=== PATIENT | male | born 1945 | race Caucasian/White ===

== ENCOUNTER 2023-11-11 16:36 | Inpatient (IN) | payer OTHER ==
[2023-11-11 16:59] VITALS: BMI 28.7
[2023-11-11 17:44] LABS: VENOUS O2 SATURATION 90.6 % (70-80); VENOUS PCO2 34.2 mmHg (38-52); VENOUS PH 7.454 (7.310-7.410)
[2023-11-11 17:53] LABS: BASO % 0.4 % (0-2.0); HEMATOCRIT 35.7 % (35.4-49); HEMOGLOBIN 11.9 GM/dL (11.7-16.9); LYMPH % 11.1 % (8-40); MCH 29.6 pg (25.7-33.7); MCHC 33.4 g/dl (32.0-35.9); MEAN CELL VOLUME 88.6 fl (80-96); MEAN PLT VOLUME 7.6 fl (7.5-11.1); MONO % 16.5 % (3.8-10.2); PLATELET COUNT 217 10^3/uL (134-434); RBC 4.03 M/mm3 (4.00-5.60); RDW 17.2 % (11.9-15.9); WHITE BLOOD COUNT 8.5 K/mm3 (4.0-10.0)
[2023-11-11] MEDS ORDERED: CARBIDOPA/LEVODOPA 25/100 TABLET (FP) ONE ×3 (18:25→20:30)
[2023-11-11] MEDS ORDERED: ACETAMINOPHEN INJECTION 100 ML IVPB ONE (18:25)
[2023-11-11 18:28] LABS: POTASSIUM 4.3 mmol/L (3.5-5.1)
[2023-11-11 18:33] LABS: ALBUMIN 2.8 g/dl (3.4-5.0); CALCIUM 8.7 mg/dL (8.5-10.1)
[2023-11-11 18:34] LABS: BLOOD UREA NITROGEN 40.3 mg/dL (7-18)
[2023-11-11 18:37] LABS: CREATININE 1.5 mg/dL (0.55-1.3)
[2023-11-11 18:39] LABS: BILIRUBIN,TOTAL 0.4 mg/dL (0.2-1); TOT PROT 7.1 g/dl (6.4-8.2)
[2023-11-11] MEDS: ACETAMINOPHEN 1000 MG/100 ML BAG IVPB ONE (18:55)
[2023-11-11] MEDS ORDERED: MIDAZOLAM HCL 2 MG/2 ML SINGLE DOSE VIAL ONE (19:46)
[2023-11-11] MEDS ORDERED: LIDOCAINE VISCOUS 2% ORAL/TOP 15 ML UNIT-DOSE CUP ONE (20:13)
[2023-11-11] MEDS: LIDOCAINE VISCOUS 2% ORAL/TOP 100 ML BOTTLE MM ONE (20:52)
[2023-11-11] MEDS: LACTATED RINGERS SOLUTION 1000 ML INFUS.BAG IV ONE (20:52)
[2023-11-11] MEDS: CARBIDOPA/LEVODOPA 25/100 TABLET (FP) PO ONE ×2 (21:01→21:02)
[2023-11-11 21:58] LABS: URINE APPEARANCE CLEAR; URINE BILIRUBIN NEGATIVE (NEGATIVE); URINE COLOR YELLOW; URINE GLUCOSE (UA) >1000 mg/dl (NEGATIVE); URINE KETONE 40 mg/dl (NEGATIVE)
[2023-11-11 21:59] LABS: URINE LEUK ESTERASE NEGATIVE (NEGATIVE); URINE NITRITE NEGATIVE (NEGATIVE); URINE PROTEIN TRACE (NEGATIVE); URINE UROBILINOGEN 0.2 mg/dL (0.2-1.0)
[2023-11-11] MEDS: MIDAZOLAM HCL 2 MG/2 ML SINGLE DOSE VIAL IVPUSH ONE (23:24)
[2023-11-12 00:07] LABS: INR 1.05 (0.83-1.09); PROTHROMBIN TIME (PATIENT) 12.2 SEC (9.7-13.0)
[2023-11-12 00:10] LABS: ACTIVATED PTT 26.1 SECONDS (25.2-36.5)
[2023-11-12] MEDS ORDERED: PIPERACILLIN/TAZOB 3.375 GM 3.375 GM/50 ML BAG IVPB ONE (00:32)
[2023-11-12] MEDS: PIPERACILLIN/TAZOB 3.375 GM 3.375 GM in DEXTROSE 5%-WATER - 50 ML IVPB ONE (00:43)
[2023-11-12] MEDS: SODIUM CHLORIDE 0.45% 1,000 ML IV SCH (00:53)
[2023-11-12 09:23] LABS: BASO % 0.3 % (0-2.0); EOS % 0.4 % (0-4.5); HEMATOCRIT 32.3 % (35.4-49); HEMOGLOBIN 10.9 GM/dL (11.7-16.9); LYMPH % 11.6 % (8-40); MCH 30.1 pg (25.7-33.7); MCHC 33.7 g/dl (32.0-35.9); MEAN CELL VOLUME 89.3 fl (80-96); MEAN PLT VOLUME 7.7 fl (7.5-11.1); MONO % 17.9 % (3.8-10.2); NEUT % 69.8 % (42.8-82.8); PLATELET COUNT 187 10^3/uL (134-434); RBC 3.62 M/mm3 (4.00-5.60); RDW 17.7 % (11.9-15.9); WHITE BLOOD COUNT 9.2 K/mm3 (4.0-10.0)
[2023-11-12 09:27] LABS: INR 1.08 (0.83-1.09); PROTHROMBIN TIME (PATIENT) 12.5 SEC (9.7-13.0)
[2023-11-12 09:29] LABS: ACTIVATED PTT 25.1 SECONDS (25.2-36.5)
[2023-11-12] MEDS ORDERED: MELATONIN 5 MG TABLETS NGT PRN (09:44)
[2023-11-12 10:10] LABS: CALCIUM 8.5 mg/dL (8.5-10.1)
[2023-11-12 10:11] LABS: BLOOD UREA NITROGEN 35.5 mg/dL (7-18); MAGNESIUM 2.1 mg/dL (1.8-2.4)
[2023-11-12 10:14] LABS: CREATININE 1.1 mg/dL (0.55-1.3); PHOSPHOROUS 3.6 mg/dL (2.5-4.9)
[2023-11-12] MEDS: PIPERACILLIN/TAZOB 2.25 GM 2.25 GM in DEXTROSE 5%-WATER - 50 ML IVPB SCH (10:34)
[2023-11-12] MEDS: INSULIN ASPART SLIDING SCALE (NOVOLOG) 1 VIAL SQ SCH (11:30)
[2023-11-12] MEDS: LOSARTAN POTASSIUM 50 MG TABLET NGT SCH (11:40)
[2023-11-12] MEDS: VALPROATE SODIUM 250 MG/5 ML UNIT DOSE CUP NGT SCH (11:40)
[2023-11-12] MEDS: MULTIVIT-MINERALS ORAL LIQUID NGT SCH (11:41)
[2023-11-12] MEDS: ARIPiprazole 5 MG TABLET PO SCH (11:41)
[2023-11-12] MEDS: amLODIPine BESYLATE 10 MG TABLET (FP) NGT SCH (11:42)
[2023-11-12] MEDS: CARBIDOPA/LEVODOPA 25/100 TABLET (FP) NGT SCH (11:42)
[2023-11-12] MEDS: FERROUS SO4 300 MG/5 ML ORAL SOLN UNIT DOSE CUPS GT SCH (11:42)
[2023-11-12] MEDS: FAMOTIDINE 20 MG/2.5 ML ORAL LIQUID NGT SCH (11:42)
[2023-11-12] MEDS ORDERED: DEXTROSE 5%-WATER - 1,000 ML with POTASSIUM CHLORIDE 10 MEQ IV SCH (15:15)
[2023-11-12] MEDS: POTASSIUM CHLORIDE 10 MEQ in DEXTROSE 5%-WATER - 1,000 ML IV SCH (17:28)
[2023-11-12] MEDS: DEXTROSE 5%-WATER - 1,000 ML with POTASSIUM CHLORIDE 10 MEQ IV SCH (17:32)
[2023-11-12] MEDS ORDERED: ACETAMINOPHEN 650 MG/20.3 ML ORAL SOLUTION (CUPS) PO PRN (19:33)
[2023-11-12] MEDS: ACETAMINOPHEN 650 MG/20.3 ML ORAL SOLUTION (CUPS) NGT PRN (20:06)
[2023-11-12] MEDS: SENNOSIDES 8.8 MG/5 ML SYRUP NGT SCH (22:08)
[2023-11-12] MEDS: DONEPEZIL HCL 10 MG TABLET (FP) NGT SCH (22:09)
[2023-11-13] MEDS: guaiFENesin/D-METHORPHAN HB 10 ML UNIT-DOSE CUPS NGT PRN (04:25)
[2023-11-13 09:05] LABS: BASO % 0.7 % (0-2.0); EOS % 0.6 % (0-4.5); HEMATOCRIT 33.3 % (35.4-49); HEMOGLOBIN 10.9 GM/dL (11.7-16.9); LYMPH % 15.2 % (8-40); MCH 29.3 pg (25.7-33.7); MCHC 32.6 g/dl (32.0-35.9); MEAN PLT VOLUME 7.5 fl (7.5-11.1); MONO % 17.6 % (3.8-10.2); NEUT % 65.9 % (42.8-82.8); PLATELET COUNT 180 10^3/uL (134-434); RDW 17.4 % (11.9-15.9); WHITE BLOOD COUNT 8.8 K/mm3 (4.0-10.0)
[2023-11-13 09:22] LABS: POTASSIUM 4.1 mmol/L (3.5-5.1)
[2023-11-13 09:24] LABS: CALCIUM 7.9 mg/dL (8.5-10.1)
[2023-11-13 09:25] LABS: ALBUMIN 2.2 g/dl (3.4-5.0); BLOOD UREA NITROGEN 24.5 mg/dL (7-18)
[2023-11-13 09:28] LABS: CREATININE 1.1 mg/dL (0.55-1.3)
[2023-11-13 09:30] LABS: BILIRUBIN,TOTAL 0.5 mg/dL (0.2-1); TOT PROT 6.2 g/dl (6.4-8.2)
[2023-11-13] MEDS: POTASSIUM CHLORIDE 10 MEQ in DEXTROSE 5%-WATER - 1,000 ML IV SCH (10:53)
[2023-11-13] MEDS: POLYETHYLENE GLYCOL (HEALTHYLAX) 3350 17 GM PACKET GT SCH ×2 (13:06→17:05)
[2023-11-13] MEDS: PIPERACILLIN/TAZOB 3.375 GM 3.375 GM in DEXTROSE 5%-WATER - 50 ML IVPB SCH (14:09)
[2023-11-13] MEDS: PIPERACILLIN/TAZOB 2.25 GM 2.25 GM in DEXTROSE 5%-WATER - 50 ML IVPB SCH (14:11)
[2023-11-13] MEDS: AMINO ACIDS 4.25%/D5W 1,000 ML IV SCH (18:27)
[2023-11-14 09:18] LABS: BASO % 0.4 % (0-2.0); EOS % 0.1 % (0-4.5); HEMATOCRIT 36.4 % (35.4-49); HEMOGLOBIN 11.8 GM/dL (11.7-16.9); LYMPH % 13.4 % (8-40); MCH 29.2 pg (25.7-33.7); MCHC 32.5 g/dl (32.0-35.9); MEAN CELL VOLUME 89.7 fl (80-96); MEAN PLT VOLUME 7.8 fl (7.5-11.1); MONO % 10.8 % (3.8-10.2); NEUT % 75.3 % (42.8-82.8); PLATELET COUNT 186 10^3/uL (134-434); RBC 4.05 M/mm3 (4.00-5.60); RDW 17.5 % (11.9-15.9); WHITE BLOOD COUNT 10.6 K/mm3 (4.0-10.0)
[2023-11-14 09:37] LABS: POTASSIUM 3.7 mmol/L (3.5-5.1)
[2023-11-14 09:40] LABS: CALCIUM 8.2 mg/dL (8.5-10.1)
[2023-11-14 09:41] LABS: BLOOD UREA NITROGEN 23.2 mg/dL (7-18)
[2023-11-14 09:42] LABS: ALBUMIN 2.3 g/dl (3.4-5.0)
[2023-11-14 09:44] LABS: CREATININE 1.1 mg/dL (0.55-1.3)
[2023-11-14 09:46] LABS: BILIRUBIN,TOTAL 0.6 mg/dL (0.2-1); TOT PROT 6.4 g/dl (6.4-8.2)
[2023-11-15 08:25] LABS: BASO % 0.2 % (0-2.0); HEMATOCRIT 35.6 % (35.4-49); HEMOGLOBIN 11.8 GM/dL (11.7-16.9); LYMPH % 7.9 % (8-40); MCH 29.3 pg (25.7-33.7); MCHC 33.1 g/dl (32.0-35.9); MEAN CELL VOLUME 88.6 fl (80-96); MEAN PLT VOLUME 8.1 fl (7.5-11.1); MONO % 10.6 % (3.8-10.2); NEUT % 81.3 % (42.8-82.8); PLATELET COUNT 177 10^3/uL (134-434); RBC 4.02 M/mm3 (4.00-5.60); RDW 17.4 % (11.9-15.9); WHITE BLOOD COUNT 13.8 K/mm3 (4.0-10.0)
[2023-11-15 08:43] LABS: POTASSIUM 3.4 mmol/L (3.5-5.1)
[2023-11-15 08:46] LABS: CALCIUM 8.1 mg/dL (8.5-10.1)
[2023-11-15 08:47] LABS: ALBUMIN 2.1 g/dl (3.4-5.0); BLOOD UREA NITROGEN 26.6 mg/dL (7-18)
[2023-11-15 08:50] LABS: CREATININE 1.1 mg/dL (0.55-1.3)
[2023-11-15 08:51] LABS: BILIRUBIN,TOTAL 0.4 mg/dL (0.2-1); TOT PROT 6.3 g/dl (6.4-8.2)
[2023-11-15] MEDS: ALBUTEROL SO4 2.5/IPRATROPIUM 0.5 INH SOL 3 ML VIAL.NEB. NEB SCH (11:50)
[2023-11-15] MEDS: KCL 10 MEQ IVPB 10 MEQ/100 ML INFUS.BAG IVPB SCH (16:31)
[2023-11-16] MEDS: metoPROLOL SUCCINATE 25 MG TAB.SR.24H (FP) PO SCH (09:27)
[2023-11-16 09:53] LABS: BASO % 0.2 % (0-2.0); HEMATOCRIT 36.2 % (35.4-49); HEMOGLOBIN 11.4 GM/dL (11.7-16.9); LYMPH % 5.6 % (8-40); MCH 28.4 pg (25.7-33.7); MCHC 31.5 g/dl (32.0-35.9); MEAN CELL VOLUME 90.3 fl (80-96); MEAN PLT VOLUME 8.3 fl (7.5-11.1); MONO % 7.7 % (3.8-10.2); NEUT % 86.5 % (42.8-82.8); PLATELET COUNT 180 10^3/uL (134-434); RBC 4.01 M/mm3 (4.00-5.60); RDW 17.9 % (11.9-15.9); WHITE BLOOD COUNT 14.2 K/mm3 (4.0-10.0)
[2023-11-16 10:02] LABS: POTASSIUM 3.5 mmol/L (3.5-5.1)
[2023-11-16 10:21] LABS: BLOOD UREA NITROGEN 34.6 mg/dL (7-18); CALCIUM 8.6 mg/dL (8.5-10.1)
[2023-11-16 10:23] LABS: CREATININE 1.1 mg/dL (0.55-1.3)
[2023-11-16 10:26] LABS: BILIRUBIN,TOTAL 0.4 mg/dL (0.2-1); TOT PROT 6.5 g/dl (6.4-8.2)
[2023-11-16] MEDS: POTASSIUM CHLORIDE 10 MEQ in AMINO ACIDS 4.25%/D5W 1,000 ML IV SCH (13:38)
[2023-11-16] MEDS: INSULIN (LEVEMIR) 100 UNITS/ML UNITS SQ SCH (22:02)
[2023-11-17 09:15] LABS: BASO % 0.5 % (0-2.0); HEMATOCRIT 36.4 % (35.4-49); HEMOGLOBIN 11.7 GM/dL (11.7-16.9); MCH 29.1 pg (25.7-33.7); MCHC 32.1 g/dl (32.0-35.9); MEAN CELL VOLUME 90.5 fl (80-96); MEAN PLT VOLUME 8.9 fl (7.5-11.1); MONO % 9.6 % (3.8-10.2); NEUT % 78.9 % (42.8-82.8); PLATELET COUNT 164 10^3/uL (134-434); RBC 4.03 M/mm3 (4.00-5.60); RDW 18.4 % (11.9-15.9)
[2023-11-17 09:45] LABS: POTASSIUM 3.6 mmol/L (3.5-5.1)
[2023-11-17 09:53] LABS: CALCIUM 8.5 mg/dL (8.5-10.1)
[2023-11-17 09:55] LABS: BLOOD UREA NITROGEN 37.8 mg/dL (7-18)
[2023-11-17 09:57] LABS: CREATININE 1.1 mg/dL (0.55-1.3); TOT PROT 6.5 g/dl (6.4-8.2)
[2023-11-17 09:59] LABS: BILIRUBIN,TOTAL 0.3 mg/dL (0.2-1)
[2023-11-18 09:02] LABS: POTASSIUM 3.8 mmol/L (3.5-5.1)
[2023-11-18 09:09] LABS: ALBUMIN 1.8 g/dl (3.4-5.0); BLOOD UREA NITROGEN 46.2 mg/dL (7-18); CALCIUM 8.9 mg/dL (8.5-10.1)
[2023-11-18 09:12] LABS: BILIRUBIN,TOTAL 0.4 mg/dL (0.2-1); CREATININE 1.2 mg/dL (0.55-1.3); TOT PROT 6.5 g/dl (6.4-8.2)
[2023-11-18] MEDS: DEXTROSE 5%-WATER - 1,000 ML IV SCH (18:35)
[2023-11-19 08:53] LABS: ALBUMIN 1.6 g/dl (3.4-5.0); BILIRUBIN,TOTAL 0.4 mg/dL (0.2-1); BLOOD UREA NITROGEN 56.9 mg/dL (7-18); CALCIUM 8.4 mg/dL (8.5-10.1); CREATININE 1.6 mg/dL (0.55-1.3); POTASSIUM 3.5 mmol/L (3.5-5.1)
[2023-11-19] MEDS: SCOPOLAMINE HYDROBROMIDE 1 PATCH PATCH.TD72 TD SCH (11:36)
[2023-11-19 12:47] LABS: ARTERIAL BLD GAS O2 SATURATION 92.9 % (95-98); ARTERIAL BLOOD GAS BASE EXCESS -3.1 mmol/L (-2-2); ARTERIAL BLOOD GAS pH 7.441 (7.350-7.450)
[2023-11-19 12:50] LABS: ALLENS TEST POSITIVE
[2023-11-20] MEDS: MEROPENEM 1 GM in DEXTROSE 5%-WATER 100 ML IVPB ONE (00:14)
[2023-11-20] MEDS: FUROSEMIDE 40 MG/4 ML INJECTABLE VIAL IVPUSH ONE (11:10)
[2023-11-20] MEDS: MORPHINE SULFATE/0.9% NACL/PF 100 MG/100 ML BAG IVPB SCH (14:38)
[2023-11-20] MEDS: POTASSIUM CHLORIDE 10 MEQ in AMINO ACIDS 4.25%/D5W 1,000 ML IV SCH (15:33)
[2023-11-20] MEDS: INSULIN (LEVEMIR) 100 UNITS/ML UNITS SQ SCH (22:33)
[2023-11-21] MEDS: HYOSCYAMINE SULFATE 0.125 MG *ODT PO PRN (11:09)
[2023-11-22 04:40] VITALS: BP 84/52; PULSE 102; TEMP 98.6
[2023-11-22 09:03] LABS: POTASSIUM 3.8 mmol/L (3.5-5.1)
[2023-11-22 09:05] VITALS: RESP 16
[2023-11-22 09:07] LABS: CALCIUM 8.4 mg/dL (8.5-10.1)
[2023-11-22 09:08] LABS: ALBUMIN 1.4 g/dl (3.4-5.0)
[2023-11-22 09:11] LABS: CREATININE 3.1 mg/dL (0.55-1.3)
[2023-11-22 09:12] LABS: BILIRUBIN,TOTAL 0.4 mg/dL (0.2-1); TOT PROT 6.2 g/dl (6.4-8.2)
[2023-11-22 09:19] LABS: BLOOD UREA NITROGEN 94.3 mg/dL (7-18)
== END 2023-11-22 19:21 | DRG 178 ==
LOC: EDBD 16:36 → JER 16:36 → JERBED 23:26 → J5S 11-12 02:38 → J6S 11-21 16:37
PROVIDERS: ADMIT Internal Medicine; ATTEND Family Medicine
DX: J69.0 Pneumonitis due to inhalation of food and vomit (principal); E87.0 Hyperosmolality and hypernatremia; F03.911 Unspecified dementia, unspecified severity, with agitation; I50.22 Chronic systolic (congestive) heart failure; J98.11 Atelectasis; N17.9 Acute kidney failure, unspecified; F41.8 Other specified anxiety disorders; G31.83 Neurocognitive disorder with Lewy bodies; J44.9 Chronic obstructive pulmonary disease, unspecified; R09.02 Hypoxemia; E87.6 Hypokalemia; R50.9 Fever, unspecified; I25.10 Atherosclerotic heart disease of native coronary artery without angina pectoris; K80.20 Calculus of gallbladder without cholecystitis without obstruction; G20.B1 Parkinson's disease with dyskinesia, without mention of fluctuations; I11.0 Hypertensive heart disease with heart failure; D64.9 Anemia, unspecified; I44.0 Atrioventricular block, first degree; N40.0 Benign prostatic hyperplasia without lower urinary tract symptoms; K21.9 Gastro-esophageal reflux disease without esophagitis; K59.00 Constipation, unspecified; F32.9 Major depressive disorder, single episode, unspecified; Z74.01 Bed confinement status
CPT/HCPCS: 0241U-QW; 36415; 36600; 70450-TC; 71045-TC-FY; 71275-TC; 72125-TC; 76705-TC; 80048; 80053; 81003; 82140; 82550; 82607; 82728; 82803; 82962; 83036; 83540; 83550; 83605; 83735; 84100; 84443; 84484; 85025; 85610; 85651; 85730; 86140; 86780; 86850; 86900; 86901; 87040; 87086; 93005; 93010; 93306-TC; 94640; 99285-25; J0131; Q9967

== ENCOUNTER 2023-11-24 01:13 | Inpatient (IN) | payer OTHER ==
[2023-11-24 01:39] VITALS: BMI 25.8
[2023-11-24 02:26] LABS: HEMATOCRIT 26.7 % (35.4-49); HEMOGLOBIN 8.8 GM/dL (11.7-16.9); MCH 29.9 pg (25.7-33.7); MCHC 32.9 g/dl (32.0-35.9); MEAN CELL VOLUME 90.6 fl (80-96); MEAN PLT VOLUME 9.5 fl (7.5-11.1); PLATELET COUNT 240 10^3/uL (134-434); RBC 2.95 M/mm3 (4.00-5.60); RDW 19.7 % (11.9-15.9)
[2023-11-24 02:46] LABS: CHLORIDE 116 mmol/L (98-107); POTASSIUM 5.3 mmol/L (3.5-5.1); SODIUM 146 mmol/L (136-145)
[2023-11-24 02:48] LABS: CALCIUM 7.6 mg/dL (8.5-10.1)
[2023-11-24 02:49] LABS: ANION GAP 10 mmol/L (4-13); CO2 20 mmol/L (21-32); GLUCOSE,RANDOM 191 mg/dL (74-106)
[2023-11-24 02:52] LABS: SGOT/AST 111 U/L (15-37); SGPT/ALT 22 U/L (13-61)
[2023-11-24 02:54] LABS: BILIRUBIN,TOTAL 0.4 mg/dL (0.2-1); TOT PROT 5.8 g/dl (6.4-8.2)
[2023-11-24 02:55] LABS: ALK PHOS 36 U/L (45-117)
[2023-11-24 02:56] LABS: ALBUMIN 1.2 g/dl (3.4-5.0); BLOOD UREA NITROGEN 148.8 mg/dL (7-18)
[2023-11-24] MEDS: SODIUM CHLORIDE 0.45% 1,000 ML IV SCH (06:06)
[2023-11-24] MEDS: SODIUM CHLORIDE 500 ML IV STA (06:06)
[2023-11-24 07:04] LABS: INR 1.95 (0.83-1.09); PROTHROMBIN TIME (PATIENT) 21.6 SEC (9.7-13.0)
[2023-11-24 07:07] LABS: ACTIVATED PTT 22.6 SECONDS (25.2-36.5)
[2023-11-24 07:11] LABS: ANISOCYTOSIS 2+; MACROCYTOSIS 0; ROULEAU 1+
[2023-11-24 07:15] LABS: CHLORIDE 116 mmol/L (98-107); POTASSIUM 4.5 mmol/L (3.5-5.1); SODIUM 146 mmol/L (136-145)
[2023-11-24 07:18] LABS: CALCIUM 7.6 mg/dL (8.5-10.1)
[2023-11-24 07:19] LABS: ANION GAP 10 mmol/L (4-13); CO2 20 mmol/L (21-32); GLUCOSE,RANDOM 213 mg/dL (74-106); MAGNESIUM 2.9 mg/dL (1.8-2.4)
[2023-11-24 07:23] LABS: CREATININE 7.3 mg/dL (0.55-1.3)
[2023-11-24 08:09] LABS: BLOOD UREA NITROGEN 157.3 mg/dL (7-18)
[2023-11-24] MEDS: PIPERACILLIN/TAZOB 2.25 GM 2.25 GM in DEXTROSE 5%-WATER - 50 ML IVPB ONE (09:19)
[2023-11-24] MEDS: HEPARIN NA (PORCINE) 5,000 UNITS/ML 1ML VIAL SQ SCH (15:40)
[2023-11-24] MEDS: ALBUTEROL SO4 2.5/IPRATROPIUM 0.5 INH SOL 3 ML VIAL.NEB. NEB SCH (16:25)
[2023-11-24] MEDS: INSULIN (NOVOLOG) ASPART 100 UNITS/ML 10ML VIAL SQ SCH (17:00)
[2023-11-24] MEDS ORDERED: INSULIN (NOVOLOG) ASPART 100 UNITS/ML 10ML VIAL ONE (20:58)
[2023-11-25 08:36] LABS: BASO % 0.4 % (0-2.0); EOS % 0.1 % (0-4.5); HEMATOCRIT 27.3 % (35.4-49); HEMOGLOBIN 9.1 GM/dL (11.7-16.9); LYMPH % 6.6 % (8-40); MCH 29.3 pg (25.7-33.7); MCHC 33.3 g/dl (32.0-35.9); MEAN PLT VOLUME 9.3 fl (7.5-11.1); MONO % 6.1 % (3.8-10.2); NEUT % 86.8 % (42.8-82.8); PLATELET COUNT 225 10^3/uL (134-434); RBC 3.11 M/mm3 (4.00-5.60); RDW 19.2 % (11.9-15.9); WHITE BLOOD COUNT 12.8 K/mm3 (4.0-10.0)
[2023-11-25 08:46] LABS: INR 2.37 (0.83-1.09); PROTHROMBIN TIME (PATIENT) 26.1 SEC (9.7-13.0)
[2023-11-25 08:54] LABS: CHLORIDE 116 mmol/L (98-107); POTASSIUM 4.8 mmol/L (3.5-5.1); SODIUM 147 mmol/L (136-145)
[2023-11-25 08:58] LABS: ANION GAP 15 mmol/L (4-13); CALCIUM 7.9 mg/dL (8.5-10.1); CO2 16 mmol/L (21-32)
[2023-11-25 08:59] LABS: GLUCOSE,RANDOM 278 mg/dL (74-106)
[2023-11-25 09:07] LABS: BLOOD UREA NITROGEN 183.7 mg/dL (7-18); CREATININE 7.9 mg/dL (0.55-1.3)
[2023-11-25] MEDS: ACETAMINOPHEN 1000 MG/100 ML BAG IVPB PRN (10:52)
[2023-11-25] MEDS: SCOPOLAMINE HYDROBROMIDE 1 PATCH PATCH.TD72 TD SCH (11:36)
[2023-11-25] MEDS: SODIUM CHLORIDE 500 ML IV STA (15:21)
[2023-11-25] MEDS ORDERED: KETOROLAC TROMETHAMINE 15 MG/ML VIAL IVPUSH PRN (16:06)
[2023-11-25] MEDS: SODIUM CHLORIDE 0.45% 1,000 ML IV SCH (16:41)
[2023-11-25] MEDS ORDERED: INSULIN (NOVOLOG) ASPART 100 UNITS/ML 10ML VIAL ONE (22:32)
[2023-11-26] MEDS: COLLAGENASE CLOSTRIDIUM HIST. 30 GRAMS TUBE TP SCH (05:20)
[2023-11-26] MEDS ORDERED: INSULIN (NOVOLOG) ASPART 100 UNITS/ML 10ML VIAL ONE ×5 (07:04→22:05)
[2023-11-26 08:52] LABS: CHLORIDE 121 mmol/L (98-107); POTASSIUM 4.5 mmol/L (3.5-5.1); SODIUM 150 mmol/L (136-145)
[2023-11-26 09:03] LABS: ANION GAP 14 mmol/L (4-13); CO2 16 mmol/L (21-32); GLUCOSE,RANDOM 282 mg/dL (74-106)
[2023-11-26 09:06] LABS: CREATININE 6.3 mg/dL (0.55-1.3)
[2023-11-26 10:14] LABS: BLOOD UREA NITROGEN 176.8 mg/dL (7-18)
[2023-11-26] MEDS: SODIUM CHLORIDE 0.45% 1,000 ML IV SCH (15:31)
[2023-11-27 08:43] LABS: CHLORIDE 126 mmol/L (98-107); POTASSIUM 3.8 mmol/L (3.5-5.1); SODIUM 152 mmol/L (136-145)
[2023-11-27 08:45] LABS: ALBUMIN 1.3 g/dl (3.4-5.0); ANION GAP 9 mmol/L (4-13); CALCIUM 7.6 mg/dL (8.5-10.1); CO2 17 mmol/L (21-32); GLUCOSE,RANDOM 295 mg/dL (74-106)
[2023-11-27 08:48] LABS: CREATININE 3.8 mg/dL (0.55-1.3); SGOT/AST 45 U/L (15-37); SGPT/ALT 30 U/L (13-61)
[2023-11-27 08:50] LABS: BILIRUBIN,TOTAL 0.4 mg/dL (0.2-1); TOT PROT 5.9 g/dl (6.4-8.2)
[2023-11-27 08:51] LABS: ALK PHOS 60 U/L (45-117)
[2023-11-27 08:54] LABS: BLOOD UREA NITROGEN 146.1 mg/dL (7-18)
[2023-11-27] MEDS ORDERED: INSULIN (NOVOLOG) ASPART 100 UNITS/ML 10ML VIAL ONE ×3 (11:55→22:16)
[2023-11-27 12:01] LABS: EPI CELLS >36 /uL (0-25.1); HYALINE CASTS 11 /uL (0-3.1); PH,URINE 5.5 (5.0-8.0); URINE APPEARANCE CLOUDY; URINE BACTERIA 21 /uL (0-1359); URINE BILIRUBIN NEGATIVE (NEGATIVE); URINE COLOR YELLOW; URINE GLUCOSE (UA) TRACE (NEGATIVE); URINE KETONE NEGATIVE (NEGATIVE); URINE LEUK ESTERASE 1+ (NEGATIVE); URINE NITRITE NEGATIVE (NEGATIVE); URINE PROTEIN 1+ (NEGATIVE); URINE UROBILINOGEN 0.2 mg/dL (0.2-1.0); URINE WBC 117 /uL (0-25.8)
[2023-11-27 12:17] LABS: URINE RBC 407.6 /uL (0-23.9)
[2023-11-27] MEDS: PHYTONADIONE 10 MG/1 ML AMP SQ ONE (16:29)
[2023-11-28] MEDS ORDERED: INSULIN (NOVOLOG) ASPART 100 UNITS/ML 10ML VIAL ONE (10:13)
[2023-11-28 10:16] LABS: INR 1.48 (0.83-1.09); PROTHROMBIN TIME (PATIENT) 16.5 SEC (9.7-13.0)
[2023-11-28 10:29] LABS: POTASSIUM 3.5 mmol/L (3.5-5.1)
[2023-11-28 10:31] LABS: ALBUMIN 1.2 g/dl (3.4-5.0)
[2023-11-28 10:34] LABS: CREATININE 2.1 mg/dL (0.55-1.3)
[2023-11-28 10:36] LABS: BILIRUBIN,TOTAL 0.4 mg/dL (0.2-1); TOT PROT 5.8 g/dl (6.4-8.2)
[2023-11-28 10:49] LABS: BLOOD UREA NITROGEN 102.2 mg/dL (7-18)
[2023-11-28] MEDS: POTASSIUM CHLORIDE 10 MEQ in DEXTROSE 5%-WATER - 1,000 ML IV SCH (17:24)
[2023-11-29 09:34] LABS: INR 1.16 (0.83-1.09)
[2023-11-29 09:50] LABS: POTASSIUM 3.6 mmol/L (3.5-5.1)
[2023-11-29 09:58] LABS: ALBUMIN 1.3 g/dl (3.4-5.0); MAGNESIUM 2.4 mg/dL (1.8-2.4)
[2023-11-29 09:59] LABS: CREATININE 1.7 mg/dL (0.55-1.3)
[2023-11-29 10:01] LABS: BILIRUBIN,TOTAL 0.5 mg/dL (0.2-1); TOT PROT 5.8 g/dl (6.4-8.2)
[2023-11-29 10:20] LABS: BLOOD UREA NITROGEN 75.7 mg/dL (7-18)
[2023-11-29] MEDS: CEFAZOLIN SODIUM 2 GM in DEXTROSE 5%-WATER 100 ML IVPB ONE (10:55)
[2023-11-29] MEDS: SODIUM CHLORIDE 500 ML IV SCH (10:55)
[2023-11-29] MEDS ORDERED: ceFAZolin SODIUM 1 GM VIAL ONE (11:15)
[2023-11-29] MEDS: GLUCAGON 1 MG KIT IVPUSH ONE (11:17)
[2023-11-29] MEDS ORDERED: FENTANYL CITRATE/PF 50 MCG/ML VIAL ONE ×2 (12:10→12:31)
[2023-11-29] MEDS ORDERED: GLUCAGON 1 MG KIT ONE (12:14)
[2023-11-29] MEDS ORDERED: INSULIN (NOVOLOG) ASPART 100 UNITS/ML 10ML VIAL ONE (23:40)
[2023-11-30 09:11] LABS: HEMOGLOBIN 9.8 GM/dL (11.7-16.9); MCH 29.8 pg (25.7-33.7); MCHC 32.9 g/dl (32.0-35.9); MEAN CELL VOLUME 90.8 fl (80-96); MEAN PLT VOLUME 10.1 fl (7.5-11.1); PLATELET COUNT 276 10^3/uL (134-434); RDW 20.2 % (11.9-15.9); WHITE BLOOD COUNT 10.9 K/mm3 (4.0-10.0)
[2023-11-30 09:26] LABS: POTASSIUM 3.8 mmol/L (3.5-5.1)
[2023-11-30 09:31] LABS: ALBUMIN 1.3 g/dl (3.4-5.0)
[2023-11-30 09:32] LABS: CALCIUM 8.3 mg/dL (8.5-10.1)
[2023-11-30 09:34] LABS: CREATININE 1.4 mg/dL (0.55-1.3)
[2023-11-30 09:38] LABS: BILIRUBIN,TOTAL 0.4 mg/dL (0.2-1)
[2023-11-30] MEDS: POTASSIUM CHLORIDE 10 MEQ in DEXTROSE 5%-WATER - 1,000 ML IV SCH (10:07)
[2023-11-30] MEDS: DEXTROSE 5%-WATER - 1,000 ML IV SCH (11:17)
[2023-11-30] MEDS ORDERED: INSULIN (NOVOLOG) ASPART 100 UNITS/ML 10ML VIAL ONE ×2 (11:38→17:38)
[2023-12-01 08:34] LABS: BASO % 0.1 % (0-2.0); EOS % 0.9 % (0-4.5); HEMATOCRIT 30.1 % (35.4-49); HEMOGLOBIN 9.8 GM/dL (11.7-16.9); LYMPH % 9.4 % (8-40); MCH 29.8 pg (25.7-33.7); MCHC 32.5 g/dl (32.0-35.9); MEAN CELL VOLUME 91.8 fl (80-96); MEAN PLT VOLUME 9.9 fl (7.5-11.1); MONO % 2.9 % (3.8-10.2); NEUT % 86.7 % (42.8-82.8); PLATELET COUNT 214 10^3/uL (134-434); RBC 3.28 M/mm3 (4.00-5.60); RDW 20.4 % (11.9-15.9); WHITE BLOOD COUNT 9.7 K/mm3 (4.0-10.0)
[2023-12-01 08:46] LABS: CHLORIDE 128 mmol/L (98-107); POTASSIUM 3.8 mmol/L (3.5-5.1); SODIUM 153 mmol/L (136-145)
[2023-12-01 08:48] LABS: CALCIUM 7.7 mg/dL (8.5-10.1)
[2023-12-01 08:49] LABS: ALBUMIN 1.3 g/dl (3.4-5.0); ANION GAP 3 mmol/L (4-13); BLOOD UREA NITROGEN 56.1 mg/dL (7-18); CO2 21 mmol/L (21-32); MAGNESIUM 2.1 mg/dL (1.8-2.4)
[2023-12-01 08:51] LABS: SGPT/ALT 78 U/L (13-61)
[2023-12-01 08:52] LABS: CREATININE 1.6 mg/dL (0.55-1.3); PHOSPHOROUS 1.5 mg/dL (2.5-4.9); SGOT/AST 188 U/L (15-37)
[2023-12-01 08:53] LABS: BILIRUBIN,TOTAL 0.3 mg/dL (0.2-1); TOT PROT 5.5 g/dl (6.4-8.2)
[2023-12-01 09:05] LABS: ALK PHOS 118 U/L (45-117); GLUCOSE,RANDOM 611 mg/dL (74-106)
[2023-12-01] MEDS ORDERED: INSULIN (NOVOLOG) ASPART 100 UNITS/ML 10ML VIAL ONE ×2 (10:20→21:37)
[2023-12-01] MEDS: INSULIN (LEVEMIR) 100 UNITS/ML UNITS SQ SCH (15:00)
[2023-12-02] MEDS ORDERED: INSULIN (NOVOLOG) ASPART 100 UNITS/ML 10ML VIAL ONE ×4 (06:20→21:49)
[2023-12-02 09:18] LABS: BASO % 0.1 % (0-2.0); EOS % 1.4 % (0-4.5); HEMATOCRIT 30.4 % (35.4-49); HEMOGLOBIN 9.6 GM/dL (11.7-16.9); LYMPH % 11.2 % (8-40); MCH 29.3 pg (25.7-33.7); MCHC 31.7 g/dl (32.0-35.9); MEAN CELL VOLUME 92.4 fl (80-96); MEAN PLT VOLUME 9.8 fl (7.5-11.1); MONO % 2.4 % (3.8-10.2); NEUT % 84.9 % (42.8-82.8); PLATELET COUNT 192 10^3/uL (134-434); RBC 3.29 M/mm3 (4.00-5.60); RDW 20.6 % (11.9-15.9); WHITE BLOOD COUNT 9.1 K/mm3 (4.0-10.0)
[2023-12-02 09:32] LABS: CHLORIDE 126 mmol/L (98-107); POTASSIUM 4.3 mmol/L (3.5-5.1); SODIUM 153 mmol/L (136-145)
[2023-12-02 09:35] LABS: ALBUMIN 1.2 g/dl (3.4-5.0); ANION GAP 5 mmol/L (4-13); BLOOD UREA NITROGEN 54.4 mg/dL (7-18); CALCIUM 8.1 mg/dL (8.5-10.1); CO2 22 mmol/L (21-32)
[2023-12-02 09:38] LABS: CREATININE 1.3 mg/dL (0.55-1.3); SGOT/AST 238 U/L (15-37); SGPT/ALT 139 U/L (13-61)
[2023-12-02 09:40] LABS: BILIRUBIN,TOTAL 0.3 mg/dL (0.2-1); TOT PROT 5.5 g/dl (6.4-8.2)
[2023-12-02 09:41] LABS: ALK PHOS 147 U/L (45-117)
[2023-12-02 09:44] LABS: GLUCOSE,RANDOM 435 mg/dL (74-106)
[2023-12-02 10:15] LABS: ANISOCYTOSIS 2+; MACROCYTOSIS 0
[2023-12-02 23:08] VITALS: BP 114/69; PULSE 83; RESP 20; TEMP 98.8
== END 2023-12-03 00:45 | DRG 682 ==
LOC: JER 01:13 → JERBED 05:05 → J7W 09:13
PROVIDERS: ADMIT Internal Medicine; ATTEND Family Medicine
PROC: 0DH63UZ Insertion of Feeding Device into Stomach, Percutaneous Approach (ICD-10-PCS; principal; 2023-11-29)
PROC: BD12ZZZ Fluoroscopy of Stomach (ICD-10-PCS; 2023-11-29)
DX: N17.9 Acute kidney failure, unspecified (principal); E43 Unspecified severe protein-calorie malnutrition; R53.2 Functional quadriplegia; J96.00 Acute respiratory failure, unspecified whether with hypoxia or hypercapnia; G81.94 Hemiplegia, unspecified affecting left nondominant side; E87.0 Hyperosmolality and hypernatremia; I13.0 Hypertensive heart and chronic kidney disease with heart failure and stage 1 through stage 4 chronic kidney disease, or unspecified chronic kidney disease; I50.22 Chronic systolic (congestive) heart failure; R47.01 Aphasia; G20.A1 Parkinson's disease without dyskinesia, without mention of fluctuations; Z74.01 Bed confinement status; F02.80 Dementia in other diseases classified elsewhere, unspecified severity, without behavioral disturbance, psychotic disturbance, mood disturbance, and anxiety; I25.10 Atherosclerotic heart disease of native coronary artery without angina pectoris; E78.5 Hyperlipidemia, unspecified; K21.9 Gastro-esophageal reflux disease without esophagitis; K59.00 Constipation, unspecified; F41.8 Other specified anxiety disorders; E11.9 Type 2 diabetes mellitus without complications; R62.7 Adult failure to thrive; Z68.25 Body mass index [BMI] 25.0-25.9, adult; R33.9 Retention of urine, unspecified; L89.152 Pressure ulcer of sacral region, stage 2; E87.6 Hypokalemia; E86.0 Dehydration; E11.22 Type 2 diabetes mellitus with diabetic chronic kidney disease; N18.9 Chronic kidney disease, unspecified; I44.0 Atrioventricular block, first degree; J44.9 Chronic obstructive pulmonary disease, unspecified
CPT/HCPCS: 36415; 49440; 70450-TC; 71045-TC-FY; 74018-TC-FY; 80048; 80053; 80164; 81003; 82607; 82962; 83735; 84100; 84443; 85025; 85027; 85610; 85730; 86780; 87086; 93005; 93010; 94640; 99285-25; J0131; J1644